=== PATIENT | male | born 1970 | race Caucasian/White ===

== ENCOUNTER 2018-05-22 10:42 | Outpatient (REF) | payer MEDICAID, SELFPAY ==
[2018-05-22 14:26] LABS: TSH 3.68 uIU/mL (0.358-3.74)
== END 2018-05-22 11:02 ==
LOC: NCHCN 10:42
PROVIDERS: PCP Nurse Practitioner Family; Visit Provider Nurse Practitioner Family
DX: E03.9 Hypothyroidism, unspecified (principal)
CPT/HCPCS: 84443

== ENCOUNTER 2018-08-01 08:12 | Outpatient (REF) | payer MEDICAID, SELFPAY ==
[2018-08-01 13:52] LABS: Cholesterol 190 mg/dL (50-200); Glucose 87 mg/dL (70-100); HDL Cholesterol 48 mg/dL (40-60); LDL CHOLESTEROL 122 mg/dL (<100); TSH 6.42 uIU/mL (0.358-3.74); Triglyceride 151 mg/dL (30-150)
== END 2018-08-01 08:32 ==
LOC: NCHCN 08:12
PROVIDERS: PCP Nurse Practitioner Family; Visit Provider Nurse Practitioner Family
DX: Z13.1 Encounter for screening for diabetes mellitus (principal); Z13.220 Encounter for screening for lipoid disorders; E03.9 Hypothyroidism, unspecified; Z00.00 Encounter for general adult medical examination without abnormal findings
CPT/HCPCS: 80061; 82947; 83721; 84443

== ENCOUNTER 2018-10-12 01:27 | Outpatient (CLI) | payer MEDICAID, SELFPAY ==
--- NOTE | 2018-10-12 15:25 | DI.RAD_ITS ---
SYMPTOMS/DIAGNOSIS: RT FINGER PAIN, M79.644 RIGHT RING FINGER: Three views. No bone or joint abnormality is identified.
== END 2018-10-12 01:47 ==
PROVIDERS: PCP Nurse Practitioner Family; Visit Provider Nurse Practitioner Family
DX: M79.644 Pain in right finger(s) (principal)
CPT/HCPCS: 73140

== ENCOUNTER 2019-10-03 08:59 | Emergency (ER) | payer MEDICAID, SELFPAY ==
[2019-10-03 09:03] VITALS: BP 145/95; PULSE 84; RESP 22; TEMP 36.7
--- NOTE | 2019-10-03 09:15 | DI.RAD_ITS ---
EXAM: XR ELBOW LT COMPLETE CLINICAL HISTORY: fall R/O fx. TECHNIQUE: 2D digital imaging was performed. COMPARISON: No exams were available for comparison FINDINGS: BONES: No acute fracture is present. No bony destructive lesion is seen. JOINTS: The elbow is normally aligned. No joint effusion is seen. SOFT TISSUE: Normal. IMPRESSION: Unremarkable radiographs of the left elbow. DATA REPOSITORY: RADIATION DOSE DELIVERED:
--- NOTE | 2019-10-03 09:15 | DI.RAD_ITS ---
EXAM: XR RIBS LT PA CHEST 3V CLINICAL HISTORY: Fall 6 days ago R/O fx TECHNIQUE: 2D digital imaging was performed. COMPARISON: No exams were available for comparison FINDINGS: MEDIASTINUM: Normal. HEART: Normal. PULMONARY VASCULATURE: Normal. LUNGS: Clear. PLEURAL SPACE: No pleural effusion or pneumothorax. BONE:Normal. Left RIBS: Nondisplaced fracture of the posterolateral aspect of the left 7th rib. OTHER FINDINGS:Normal. IMPRESSION: 1. No acute pulmonary findings. 2. Nondisplaced fracture of the posterolateral aspect of the left 7th rib. DATA REPOSITORY: RADIATION DOSE DELIVERED:
--- NOTE | 2019-10-03 09:15 | DI.RAD_ITS ---
EXAM: XR WRIST LT COMPLETE CLINICAL HISTORY: Fall, R/O fx. TECHNIQUE: 2D digital imaging was performed. COMPARISON: No exams were available for comparison FINDINGS: BONES: Cortical lucency seen on the lateral view in the dorsum of the wrist suspicious for a triquetr al fracture. No bony destructive lesion is seen. JOINTS: The carpal bones are normally aligned. SOFT TISSUE: Normal. IMPRESSION: Possible nondisplaced triquetral fracture. Please correlate with patient's site of pain. DATA REPOSITORY: RADIATION DOSE DELIVERED:
--- NOTE | 2019-10-03 09:24 | W.ED.GENAD ---
Discharge Plan Disposition Patient Disposition: HOME Condition: Stable Discharge Details Chief Complaint: Chest/Rib Clinical Impression: Fracture of left wrist, Left rib fracture Primary Care Provider: Kiana Lopes ED Provider: Ambreen Martinez Home Meds and New Rx's Prescriptions: No Action levothyroxine 112 mcg Tablet 112 mcg PO DAILY RF: 0 Discharge Instructions Instructions: Wrist Fracture in Adults (ED), Rib Fracture (ED) Additional Instructions: Follow up with primary care provider in 3-5 days. Return to ED sooner if any worsening or concerns. Increase oral fluids. Please take Tylenol or Ibuprofen with food every 4-6 hours as needed for pain and swelling. You placed on a list for orthopedics follow-up. Keep splint on, may take off for showering. Return to the ED for any increased shortness of breath, fever, chills worsening pain not relieved by medication or any concerns. Referrals: Yves Yun MD [ [facility] STAFF PHYSICIAN] - (Follow-up within 1 to 2 weeks) Kiana Lopes [Primary Care Provider] - Discharge Data Discharge Date/Time-TO BE ENTERED AT DEPARTURE: 10/03/19 11:17 Medical Decision Making 48-year-old male presents to the ED after a fall from approximately 4 feet from a forearm ladder 6 days ago. Patient states that the ladder went from underneath him and he fell onto his left side. He is complaining of left rib pain which began yesterday describes this as a twinge, left wrist and left elbow pain. Denies LOC no neck or back pain. Denies abdominal pain, nausea vomiting, dysuria or problems urinating no hematuria. Denies diarrhea. Patient took ibuprofen prior to arrival which helped somewhat. At this time imaging ordered including wrist left elbow and left rib chest area rule out fracture. EXAM: XR RIBS LT PA CHEST 3V CLINICAL HISTORY: Fall 6 days ago R/O fx FINDINGS: MEDIASTINUM: Normal. HEART: Normal. PULMONARY VASCULATURE: Normal. LUNGS: Clear. PLEURAL SPACE: No pleural effusion or pneumothorax. BONE:Normal. Left RIBS: Nondisplaced fracture of the posterolateral aspect of the left 7th rib. OTHER FINDINGS:Normal. IMPRESSION: 1. No acute pulmonary findings. 2. Nondisplaced fracture of the posterolateral aspect of the left 7th rib. X-ray left wrist complete FINDINGS: BONES: Cortical lucency seen on the lateral view in the dorsum of the wrist suspicious for a triquetral fracture. No bony destructive lesion is seen. JOINTS: The carpal bones are normally aligned. SOFT TISSUE: Normal. IMPRESSION: Possible nondisplaced triquetral fracture. Please correlate with patient's site of pain. EXAM: XR ELBOW LT COMPLETE CLINICAL HISTORY: fall R/O fx. TECHNIQUE: 2D digital imaging was performed. COMPARISON: No exams were available for comparison FINDINGS: BONES: No acute fracture is present. No bony destructive lesion is seen. JOINTS: The elbow is normally aligned. No joint effusion is seen. SOFT TISSUE: Normal. IMPRESSION: Unremarkable radiographs of the left elbow. Patient given instructions on home care and strict return instructions. Instructed to return if any fever, chills, worsening shortness of breath. [place] wrist splint applied by staff submarine warfare officer, patient instructed to follow-up with orthopedics in 1 to 2 weeks. Placed on care management follow-up list for Ortho. Patient verbalized understanding. HPI General Mode of arrival: ambulatory. Date/Time Provider Initiated Documentation: 10/03/19 09:06. Limitations to Documentation: no limitations. Information obtained by: patient. HPI Narrative: 48-year-old male presents to the ED after a fall from approximately 4 feet from a forearm ladder 6 days ago. Patient states that the ladder went from underneath him and he fell onto his left side. He is complaining of left rib pain which began yesterday describes this as a twinge, left wrist and left elbow pain. Denies LOC no neck or back pain. Denies abdominal pain, nausea vomiting, dysuria or problems urinating no hematuria. Denies diarrhea. Patient took ibuprofen prior to arrival which helped somewhat. Related Data Home Medications Medication Instructions Recorded Confirmed levothyroxine 112 mcg PO DAILY 10/03/19 10/03/19 Allergies Allergy/AdvReac Type Severity Reaction Status Date / Time Penicillins Allergy Unknown Unverified 10/03/19 10:04 General Stated Complaint: FlankPain ANNIE: 4 Review of Systems Narrative: Constitutional: Negative for weight loss, alert and oriented, well groomed, normal body habitus, appears comfortable. HEENT: Denies trauma, headaches, blurry vision, nasal discharge, sore throat, trouble swallowing. Chest: Denies chest pain, palpitations, irregular rhythm, hypertension. Positive left-sided chest wall pain. Respiratory: Denies Shortness of breath, cough, hemoptysis. GI: Denies abdominal pain, nausea, vomiting, diarrhea, constipation. : Denies dysuria, hematuria, flank pain, rectal bleeding. Extremities: Does have bruising and tenderness noted to left elbow, left wrist pain. Neuro: Denies dizziness, blurry vision, weakness, syncope, headache or facial numbness. Hematologic: Denies easy bruising, intolerance to heat or cold, hair loss. [facility] Medical History (Updated 10/03/19 @ 10:45 by Ambreen Martinez) Hypothyroidism (Chronic) Social History Smoking/Tobacco Use Status: Former Tobacco Use Alcohol Intake: never Substance use type: does not use Do you feel safe at home: Yes Do you feel safe in your relationship?: Yes Exam Narrative Exam Narrative: Constitutional: Alert and oriented x3. Appears stated age. Normal body habitus. Head: Normocephalic, no trauma. Eyes: Pupils PERRLA, Red reflex noted, EOM's intact. Eyelids symmetrical without lesions, discharge, or swelling. ENT: Bilateral TM's WNL, External ear normal to inspection, no mastoid TTP, swelling, or erythema, Nasal turbinates WNL, no nasal discharge. Normal dentition, Posterior pharynx WNL, no exudate. Chest: RRR, Normal S1, S2, distal pulses intact. Left lateral chest wall tenderness with palpation. Resp: Lungs clear to auscultation bilaterally, no wheezes, rales, or rhonchi. Musculoskeletal: Normal gait, 5/5 strength to all four extremities. Left medial dorsal tenderness of wrist, increased tenderness with flexion, no snuffbox tenderness. Healing bruise noted to the medial aspect of his left elbow. Full range of motion. Skin: Various healing contusions noted to the left extremity, no significant swelling, erythema or deformity. Capillary refill less than 2 sec. Neurologic: Cranial nerves II-XII intact. Alert and oriented x 3. DTR's intact. Hematologic/Lymphatic: No lymphadenopathy. Course Vital Signs Vital signs: Vital Signs Temperature 36.7 C 10/03/19 09:03 Pulse 84 10/03/19 09:03 Respiratory Rate 22 10/03/19 09:03 Blood Pressure 145/95 H 10/03/19 09:03 Temperature 36.7 C 10/03/19 09:03 Temperature Source Temporal Artery Scan 10/03/19 09:03 Pulse 84 10/03/19 09:03 Respiratory Rate 22 10/03/19 09:03 Respiratory Effort 10/03/19 09:09 Blood Pressure 145/95 H 10/03/19 09:03 Pain Level 3 10/03/19 09:21 Comment 10/03/19 09:03
[2019-10-03 11:15] VITALS: PULSE 84; O2SAT 97
== END 2019-10-03 11:17 | disposition home or self-care (01) ==
PROVIDERS: Emergency Provider Registered Nurse Emergency; PCP Nurse Practitioner Family; Visit Provider Registered Nurse Emergency
DX: S22.32XA Fracture of one rib, left side, initial encounter for closed fracture (principal); S62.102A Fracture of unspecified carpal bone, left wrist, initial encounter for closed fracture; W11.XXXA Fall on and from ladder, initial encounter
CPT/HCPCS: 29125; 71101; 99284; 73080; 73110; 99283; L3807

== ENCOUNTER 2019-12-20 13:31 | Outpatient (REF) | payer MEDICAID, SELFPAY ==
[2019-12-20 21:30] LABS: TSH (W/Ref FT4) 2.44 uIU/mL (0.36-3.74)
== END 2019-12-20 13:51 ==
LOC: NCHCN 13:31
PROVIDERS: PCP Nurse Practitioner Family; Visit Provider Nurse Practitioner Family
DX: E03.9 Hypothyroidism, unspecified (principal)
CPT/HCPCS: 84443

== ENCOUNTER 2020-12-29 08:26 | Outpatient (REF) | payer MEDICAID, SELFPAY ==
[2020-12-29 15:03] LABS: HCT 44.6 % (40.0-50.0); HGB 14.5 g/dL (13.5-17.5); MCH 29.4 pg (27.0-33.0); MCHC 32.5 % (32.0-36.0); MCV 90.5 fL (80-95); MPV 10.4 fL (8.0-11.0); Platelet Count 195 10^3/uL (130-400); RBC 4.93 10^6/uL (4.36-5.78); RDW 13.3 % (11.8-14.1); RDW-SD 44.7 fL; WBC 6.92 10^3/uL (4.4-10.8)
[2020-12-29 15:13] LABS: BUN 17 mg/dL (7-18); CREATININE 1.1 mg/dL (0.70-1.30); Calcium 8.8 mg/dL (8.5-10.1); Calculated LDL 116 mg/dL (<100); Chloride 105 mmol/L (98-107); Cholesterol 183 mg/dL (<200); Glucose 94 mg/dL (74-106); HDL Cholesterol 52 mg/dL (40-60); Potassium 3.9 mmol/L (3.5-5.1); Sodium 140 mmol/L (136-145); TSH (W/Ref FT4) 4.01 uIU/mL (0.36-3.74); Triglyceride 78 mg/dL (<150)
[2020-12-29 15:37] LABS: FREE T4 1.04 ng/dL (0.76-1.46)
[2020-12-31 00:51] LABS: Vitamin D 25 Total 28.7 ng/mL (30-100)
[2021-01-05 13:47] LABS: Testosterone, Free 18.4 ng/dL (4.06-15.6); Testosterone, Total 367 ng/dL (240-950)
== END 2020-12-29 08:27 | disposition home or self-care (01) ==
LOC: NCHCN 08:26
PROVIDERS: PCP Nurse Practitioner Family; Visit Provider Nurse Practitioner Family
DX: E03.9 Hypothyroidism, unspecified (principal); F32.9 Major depressive disorder, single episode, unspecified; Z00.00 Encounter for general adult medical examination without abnormal findings
CPT/HCPCS: 80048; 80061; 82306; 84402; 84403; 85027; 84439; 84443

== ENCOUNTER 2022-01-13 16:35 | Outpatient (REF) | payer MEDICAID, SELFPAY ==
[2022-01-13 15:19] LABS: Calculated LDL 113 mg/dL (<100); Cholesterol 195 mg/dL (<200); HDL Cholesterol 60 mg/dL (40-60); TSH (W/Ref FT4) 3.27 uIU/mL (0.36-3.74); Triglyceride 112 mg/dL (<150)
== END 2022-01-13 16:36 | disposition home or self-care (01) ==
LOC: NCHCN 16:35
PROVIDERS: PCP Nurse Practitioner Family; Visit Provider Nurse Practitioner Family
DX: E03.9 Hypothyroidism, unspecified (principal); Z13.220 Encounter for screening for lipoid disorders
CPT/HCPCS: 80061; 84443